=== PATIENT | male | born 1995 | race Caucasian/White ===

== ENCOUNTER 2017-05-05 18:31 | Emergency (ER) | payer BC ==
[2017-05-05 18:39] VITALS: RESP 16; TEMP 98.4
--- NOTE | 2017-05-05 19:49 | EDPHY ---
H & P Stated Complaint: FELL FROM ROPE SWING ABOUT 3 FEET Time Seen by Provider: 05/05/17 19:39 HPI/ROS: CHIEF COMPLAINT: Thigh pain HISTORY OF PRESENT ILLNESS: The patient is a 21-year-old man who comes to the emergency department complaining of right thigh pain. He was swinging on a rope swing and has had swung down he fell off and hit the ground. He only fell about 3 feet but had the momentum of the pendulum swing. He has abrasions to his right lateral thigh and right lateral back. He denies head neck or spine pain. He has been ambulatory but has significant pain with weight-bearing of the right leg. He denies any weakness numbness or paresthesias. He denies shortness of breath. REVIEW OF SYSTEMS: Constitutional: denies: chills, fever, recent illness, recent injury EENTM: denies: blurred vision, double vision, nose congestion Respiratory: denies: cough, shortness of breath Cardiac: denies: chest pain, irregular heart rate, lightheadedness, palpitations Gastrointestinal/Abdominal: denies: abdominal pain, diarrhea, nausea, vomiting, blood streaked stools Genitourinary: denies: dysuria, frequency, hematuria, pain Musculoskeletal: denies: joint pain, muscle pain Skin: See HPI Neurological: denies: headache, numbness, paresthesia, tingling, dizziness, weakness Hematologic/Lymphatic: denies: blood clots, easy bleeding, easy bruising Immunologic/allergic: denies: HIV/AIDS, transplant EXAM: GENERAL: Well-appearing, well-nourished and in no acute distress. HEAD: Atraumatic, normocephalic. EYES: Pupils equal round and reactive to light, extraocular movements intact, sclera anicteric, conjunctiva are normal. ENT: TMs normal, nares patent, oropharynx clear without exudates. Moist mucous membranes. NECK: No midline tenderness, Normal range of motion, supple without lymphadenopathy or JVD. LUNGS: No crepitus. Breath sounds clear to auscultation bilaterally and equal. No wheezes rales or rhonchi. HEART: Regular rate and rhythm without murmurs, rubs or gallops. ABDOMEN: Soft, nontender, normoactive bowel sounds. No guarding, no rebound. No masses appreciated. BACK: No CVA tenderness, no spinal tenderness, step-offs or deformities EXTREMITIES: Normal range of motion, no pitting or edema. No clubbing or cyanosis. NEUROLOGICAL: Cranial nerves II through XII grossly intact. Normal speech, normal gait. 5/5 strength, normal movement in all extremities, normal sensation PSYCH: Normal mood, normal affect. SKIN: Abrasion to right lateral thigh, abrasion to right posterior ribs, Source: Patient Exam Limitations: No limitations - Personal History Current Tetanus Diphtheria and Acellular Pertussis (TDAP): Unsure - Medical/Surgical History Hx Asthma: No Hx Chronic Respiratory Disease: No Hx Diabetes: No Hx Cardiac Disease: No Hx Renal Disease: No Hx Cirrhosis: No Hx Alcoholism: No Hx HIV/AIDS: No Hx Splenectomy or Spleen Trauma: No Other PMH: denies - Family History Significant Family History: No pertinent family hx - Social History Smoking Status: Never smoked Drug Use: None Constitutional: Initial Vital Signs Temperature (C) 36.9 C 05/05/17 18:37 Heart Rate 65 05/05/17 18:37 Respiratory Rate 16 05/05/17 18:37 Blood Pressure 148/92 H 05/05/17 18:37 O2 Sat (%) 100 05/05/17 18:37 O2 Delivery Mode Room Air Allergies/Adverse Reactions: No Known Allergies Allergy (Verified 05/05/17 18:41) Home Medications: Medication Instructions Recorded NK [No Known Home Meds] 05/05/17 Medical Decision Making - Diagnostics Imaging: Discussed imaging studies w/ director call Radiologist ED Course/Re-evaluation: The patient wishes to have an x-ray of his thigh. He declines imaging of his chest ribs. He is breathing comfortably and has stable vital signs. He did not hit his head and denies any neck or back pain. 8:40 p.m. we discussed the x-ray results. The patient is reassured. He is able to bear weight. But has a significant limp and a large bruise to his gluteus. I will obtain CT scan of his pelvis. 8:50 p.m. the patient refuses CT scan. He once crutches to help with the pain and to go home. He understands that there may be an occult pelvic or femoral neck injury. We discussed return precautions. Differential Diagnosis: Partial list of the Differential diagnosis considered include but were not limited to; abrasion, hematoma and although unlikely based on the history and physical exam, I also considered vascular injury, nerve injury, pelvic fracture , hip fracture, femoral fracture, low back injury. I discussed these differential diagnoses and the plan with the patient as well as the usual and expected course. The patient understands that the diagnosis is provisional and that in medicine we are not always correct and that further workup is often warranted. Usual and customary warnings were given. All of the patient's questions were answered. The patient was instructed to return to the emergency department should the symptoms at all worsen or return, otherwise to followup with the physician as we discussed. Departure - Departure Disposition: Home, Routine, Self-Care Clinical Impression: Hematoma, Abrasion Condition: Fair Instructions: Abrasion (ED), Hematoma (ED) Referrals: NONE *PRIMARY CARE P,. [Primary Care Provider] - As per Instructions [facility],. [Clinic] - As per Instructions
[2017-05-05 21:09] VITALS: BP 123/75; PULSE 84; O2SAT 94
== END 2017-05-05 21:09 | disposition home or self-care (01) ==
DX: S30.0XXA Contusion of lower back and pelvis, initial encounter (principal); S70.311A Abrasion, right thigh, initial encounter; S20.411A Abrasion of right back wall of thorax, initial encounter; W09.1XXA Fall from playground swing, initial encounter; Y99.8 Other external cause status; Y93.89 Activity, other specified